=== PATIENT | male | born 1935 | race Caucasian/White ===

== ENCOUNTER 2017-12-06 04:44 | Observation (INO) | payer OTHER ==
[~2017-12-06] VITALS: Ht 167.6 cm; Wt 86.3 kg
[2017-12-06] MEDS ORDERED: ONDANSETRON HCL INJ 2 MG/ML VIAL IV STA (05:22)
[2017-12-06] MEDS ORDERED: FENTANYL CITRATE/PF 100MCG/2 ML INJ IV ONE (05:30)
[2017-12-06] MEDS: SODIUM CHLORIDE 0.9% 1000ML 1,000 ML IV SCH ×2 (05:42→13:45)
--- NOTE | 2017-12-06 06:25 | Diagnostic Imaging Report ---
EXAM: CT ABDOMEN AND PELVIS WITHOUT IV CONTRAST INDICATION: Lower abdominal pain for 4 days, history of prostate cancer with metastasis COMPARISON: None TECHNIQUE: The abdomen and pelvis were scanned using a multidetector helical scanner. Coronal and sagittal reformations were obtained. Dose modulation, iterative reconstruction, and/or weight based adjustment of the mA/kV was utilized to reduce the radiation dose to as low as reasonably achievable. Routine protocol performed. IV Contrast: None Oral Contrast: None CTDIvol has been reviewed. It is below the limits set by the Radiation Protocol Committee (RPC). FINDINGS: LOWER THORAX: Right lung base peripheral reticulation. No consolidations. LIVER: No masses BILIARY: Normal gallbladder. No ductal dilation. SPLEEN: No masses PANCREAS: No masses ADRENALS: No nodules KIDNEYS: No nephroureterolithiasis or hydronephrosis. GI TRACT: No wall thickening or obstruction. Colonic diverticulosis predominantly of the sigmoid colon without evidence of diverticulitis. Normal appendix. VESSELS: Advanced atherosclerotic changes of the abdominal aorta without aneurysm. PERITONEUM/RETROPERITONEUM: No free air or fluid LYMPH NODES: No lymphadenopathy REPRODUCTIVE ORGANS: Posttreatment/surgical changes of the prostate, which is small. BLADDER: Normal SOFT TISSUES: Normal BONES: Diffuse sclerotic metastasis to multiple ribs, vertebral bodies and the pelvis. No evidence of acute fracture. IMPRESSION: No acute findings to explain patient's lower abdominal pain. Diffuse sclerotic metastatic disease to the spine, ribs and pelvis. Signed by: Dr. Tess Dumont M.D. on 12/06/2017 6:20 AM
[2017-12-06] MEDS ORDERED: POTASSIUM CHLORIDE 10MEQ/100ML 100 ML IV ONE ×2 (06:30)
[2017-12-06] MEDS ORDERED: POTASSIUM CHLORIDE 20 MEQ TAB CR PO STA (06:36)
[2017-12-06] MEDS ORDERED: D5.45%NS/KCL 20MEQ 1,000 ML IV SCH (07:44)
[2017-12-06] MEDS ORDERED: MORPHINE SULFATE 2 MG/ML SYR IV PRN (08:59)
[2017-12-06] MEDS ORDERED: OMEGA 3 1,0001 EACH PO (09:42)
[2017-12-06] MEDS ORDERED: ZYTIGA250 MG PO (09:42)
[2017-12-06] MEDS ORDERED: CRESTOR20 MG PO (09:42)
[2017-12-06] MEDS ORDERED: NORCO 5-325 TA1 EACH PO (09:42)
[2017-12-06] MEDS ORDERED: FEXOFENADINE H180 MG PO (09:42)
[2017-12-06] MEDS ORDERED: GABAPENTIN300 MG PO (09:42)
[2017-12-06] MEDS ORDERED: PLAVIX75 MG PO (09:42)
[2017-12-06] MEDS ORDERED: PANTOPRAZOLE SO20 MG PO (09:42)
[2017-12-06] MEDS ORDERED: VITAMIN B-121000 MCG PO (09:42)
[2017-12-06] MEDS ORDERED: METOPROLOL SUCC25 MG PO (09:42)
[2017-12-06] MEDS ORDERED: ISOSORBIDE MONO30 MG PO (09:42)
[2017-12-06] MEDS ORDERED: PRESERVISION T1 EACH PO (09:42)
[2017-12-06] MEDS ORDERED: CALCIUM 500 +1 EAC2 PO (09:42)
[2017-12-06] MEDS ORDERED: AMLODIPINE BESY10 MG PO (09:42)
[2017-12-06 09:49] VITALS: BP 115/67
[2017-12-06 10:50] VITALS: BP 115/67
[2017-12-06 11:45] VITALS: BP 114/76
[2017-12-06] MEDS ORDERED: METRONIDAZOLE 500MG/NS 100ML IV SCH (12:00)
[2017-12-06] MEDS ORDERED: METRONIDAZOLE 500MG/NS 100ML 100 ML IV SCH (12:00)
[2017-12-06] MEDS ORDERED: POTASSIUM CHLORIDE 20 MEQ TAB CR PO ONE (12:30)
[2017-12-06] MEDS ORDERED: HYDROCODONE/APAP 5MG-325MG TAB PO PRN (12:45)
[2017-12-06] MEDS ORDERED: VANCOMYCIN 250MG/5ML ORAL SOLN PO SCH (13:00)
[2017-12-06] MEDS ORDERED: MORPHINE SULFATE INJ 4 MG/ML INJ IV PRN (13:00)
[2017-12-06] MEDS ORDERED: METOPROLOL TART25 MG PO (14:03)
[2017-12-06 16:19] VITALS: BP 115/61
[2017-12-06] MEDS: ENOXAPARIN SOD INJ 40 MG/0.4 ML SYR SC SCH (17:08)
[2017-12-06] MEDS: ONDANSETRON HCL INJ 2 MG/ML VIAL IV PRN ×2 (17:08→22:12)
[2017-12-06 20:00] VITALS: BP 143/89
[2017-12-06] MEDS: METRONIDAZOLE 500MG/NS 100ML 100 ML IV SCH (20:11)
[2017-12-06] MEDS: ROSUVASTATIN 20 MG PO SCH (20:11)
[2017-12-06] MEDS ORDERED: ATORVASTATIN 40 MG TAB PO SCH (21:00)
[2017-12-07] VITALS (7 sets, daily range): BP systolic 104–138; BP diastolic 55–87
[2017-12-07] MEDS: SODIUM CHLORIDE 0.9% 1000ML 1,000 ML IV SCH (01:21)
[2017-12-07] MEDS: METRONIDAZOLE 500MG/NS 100ML 100 ML IV SCH ×3 (04:23→20:54)
[2017-12-07 04:45] LABS: BASOPHILS # (AUTO) 0.1 (0.0-0.1); BASOPHILS % 0.7 % (0.0-1.0); EOSINOPHILS # (AUTO) 0.3 (0.0-0.4); EOSINOPHILS % 3.4 % (0.0-6.0); HEMATOCRIT 38.2 % (38.2-49.6); HEMOGLOBIN 12.5 g/dL (14.0-18.0); LYMPHOCYTES # (AUTO) 1.9 (1.0-3.2); LYMPHOCYTES % 22.6 % (18.0-39.1); MEAN CORPUSCULAR HEMOGLOBIN 32.6 pg (28-32); MEAN CORPUSCULAR HGB CONC 32.7 g/dL (31-35); MEAN CORPUSCULAR VOLUME 99.7 fL (81-99); MONOCYTES # (AUTO) 0.8 (0.2-0.8); MONOCYTES % 9.1 % (4.4-11.3); NEUTROPHILS # (AUTO) 5.3 (2.1-6.9); NEUTROPHILS % 63.1 % (38.7-80.0); PLATELET COUNT 250 x10e3/uL (140-360); RED BLOOD COUNT 3.83 x10e6/uL (4.3-5.7); RED CELL DISTRIBUTION WIDTH 14.7 % (11.7-14.4)
[2017-12-07 05:07] LABS: ANION GAP 15.8 mmol/L (8-16); BLOOD UREA NITROGEN < 5 mg/dL (7-26); CALCIUM 8.1 mg/dL (8.4-10.2); CARBON DIOXIDE 22 mmol/L (22-29); CHLORIDE 107 mmol/L (98-107); CREATININE, SERUM 0.74 mg/dL (0.72-1.25); EST GLOMERULAR FILTRATION RATE > 60 ML/MIN (60-); GLUCOSE 122 mg/dL (74-118); MAGNESIUM 1.5 MG/DL (1.3-2.1); SODIUM 142 mmol/L (136-145)
[2017-12-07 05:09] LABS: BUN/CREATININE RATIO 7 (6-25)
[2017-12-07 05:10] LABS: POTASSIUM 2.8 mmol/L (3.5-5.1)
[2017-12-07] MEDS: ONDANSETRON HCL INJ 2 MG/ML VIAL IV PRN (05:19)
[2017-12-07] MEDS ORDERED: POTASSIUM CHLORIDE 20 MEQ TAB CR PO STA (05:27)
[2017-12-07] MEDS: ALPRAZOLAM 0.25 MG TAB PO PRN ×2 (05:47→21:13)
[2017-12-07] MEDS ORDERED: ZOLPIDEM TARTRATE 5 MG TAB PO PRN (10:45)
[2017-12-07] MEDS ORDERED: LOPERAMIDE HCL 2 MG CAP PO ONE (11:30)
[2017-12-07] MEDS ORDERED: MAGNESIUM SULFATE 2GM/50ML 50 ML IV ONE (11:30)
[2017-12-07] MEDS: LACTOBACILLUS ACIDOPHILUS CAPSULE PO SCH ×2 (11:43→17:17)
[2017-12-07] MEDS: LOPERAMIDE HCL 2 MG CAP PO PRN (14:31)
[2017-12-07] MEDS: ENOXAPARIN SOD INJ 40 MG/0.4 ML SYR SC SCH (17:17)
[2017-12-07] MEDS: METOPROLOL TARTRATE 25 MG TAB PO SCH (17:18)
[2017-12-07] MEDS ORDERED: POTASSIUM CHLORIDE 20 MEQ TAB CR PO ONE (17:30)
[2017-12-07] MEDS: ROSUVASTATIN 20 MG PO SCH (21:00)
[2017-12-08] VITALS: BP 160/79
[2017-12-08 00:15] VITALS: BP 104/66
[2017-12-08 04:00] VITALS: BP 151/74
[2017-12-08] MEDS: METRONIDAZOLE 500MG/NS 100ML 100 ML IV SCH (04:31)
[2017-12-08 05:03] LABS: BASOPHILS # (AUTO) 0.1 (0.0-0.1); BASOPHILS % 0.8 % (0.0-1.0); EOSINOPHILS # (AUTO) 0.3 (0.0-0.4); EOSINOPHILS % 3.9 % (0.0-6.0); HEMATOCRIT 38.1 % (38.2-49.6); HEMOGLOBIN 12.1 g/dL (14.0-18.0); LYMPHOCYTES # (AUTO) 1.8 (1.0-3.2); LYMPHOCYTES % 27.7 % (18.0-39.1); MEAN CORPUSCULAR HEMOGLOBIN 32.6 pg (28-32); MEAN CORPUSCULAR HGB CONC 31.8 g/dL (31-35); MEAN CORPUSCULAR VOLUME 102.7 fL (81-99); MONOCYTES # (AUTO) 0.6 (0.2-0.8); MONOCYTES % 9.6 % (4.4-11.3); NEUTROPHILS # (AUTO) 3.7 (2.1-6.9); NEUTROPHILS % 56.6 % (38.7-80.0); PLATELET COUNT 250 x10e3/uL (140-360); RED BLOOD COUNT 3.71 x10e6/uL (4.3-5.7)
[2017-12-08 05:22] LABS: ANION GAP 15.2 mmol/L (8-16); BLOOD UREA NITROGEN < 5 mg/dL (7-26); BUN/CREATININE RATIO 7 (6-25); CALCIUM 7.9 mg/dL (8.4-10.2); CARBON DIOXIDE 20 mmol/L (22-29); CHLORIDE 111 mmol/L (98-107); CREATININE, SERUM 0.74 mg/dL (0.72-1.25); EST GLOMERULAR FILTRATION RATE > 60 ML/MIN (60-); GLUCOSE 105 mg/dL (74-118); POTASSIUM 3.2 mmol/L (3.5-5.1); SODIUM 143 mmol/L (136-145)
[2017-12-08] MEDS: LACTOBACILLUS ACIDOPHILUS CAPSULE PO SCH (08:57)
[2017-12-08] MEDS: METOPROLOL TARTRATE 25 MG TAB PO SCH (08:57)
[2017-12-08] MEDS ORDERED: CLOPIDOGREL BISULFATE 75 MG TAB PO SCH (09:00)
[2017-12-08] MEDS ORDERED: ABIRATERONE ACETATE PO SCH (09:00)
[2017-12-08 09:12] VITALS: BP 132/67
[2017-12-08] MEDS ORDERED: POTASSIUM CHLORIDE 20 MEQ TAB CR PO NR (09:45)
[2017-12-08] MEDS: LOPERAMIDE HCL 2 MG CAP PO PRN ×2 (10:40→12:20)
[2017-12-08 12:00] VITALS: BP 113/62
--- NOTE | 2017-12-08 14:13 | Diagnostic Imaging Report ---
EXAM: Complete Abdominal Ultrasound INDICATION: Abdominal pain \S\abdominal pain COMPARISON: CT abdomen and pelvis without contrast 12/06/2017 TECHNIQUE: Transverse and longitudinal images of the upper abdomen were obtained. FINDINGS: Liver: Size: 12.8 cm in the right midclavicular line, normal Appearance: Mild increased echogenicity, smooth contour Mass: No focal masses Spleen: Size: 10.3 cm in length, normal Echogenicity: Normal Mass: No focal masses Gallbladder: Stones/Sludge: Small amount of sludge noted in the gallbladder lumen. No echogenic stones. Wall: 0.2 cm Appearance: No wall thickening, pericholecystic fluid or hydrops. Sonographic Hernandez's Sign: Negative Bile Ducts: Intrahepatic Ducts: No dilatation Extrahepatic Ducts: Common bile duct measures 0.4 cm, no dilatation Pancreas: Visualized portions of the neck and proximal body are unremarkable. Kidneys: Length: Right 10.7 cm Left 9.9 cm Echogenicity: Normal Collecting System: No hydronephrosis Stone: None Cyst/Mass: 1.3 x 1.0 x 1.2 cm cystic, anechoic lesion in the left superior pole. Vessels: Aorta: Obscured by overlying bowel gas Inferior Vena Cava: Visualized portions are normal Main Portal Vein: 0.9 cm, normal size with hepatopetal flow. Free Fluid: No ascites or pleural effusion IMPRESSION: 1. Small amount of sludge in the gallbladder lumen. No echogenic stones. No sonographic evidence of cholecystitis. 2. Mild increased echogenicity of the hepatic parenchyma, likely reflecting mild fatty infiltration. Signed by: Dr. Yahir Contreras M.D. on 12/08/2017 2:10 PM
--- NOTE | 2017-12-08 15:31 | Diagnostic Imaging Report ---
PROCEDURE: X-RAY MODIFIED BARIUM SWALLOW COMPARISON: None. INDICATION: Difficulty swallowing DISCUSSION: Fluoroscopic examination was performed in conjunction with speech pathology during swallowing a variety of thin and thick liquid consistencies. CONCLUSION: Penetration to the level of the vocal cords is demonstrated on one of the swallow sequences. No significant aspiration is demonstrated on provided images. Please refer to the speech pathology report for further details. Signed by: Dr. Isaac Carter MD on 12/08/2017 3:28 PM
== END 2017-12-08 15:26 | disposition home or self-care (01) ==
LOC: FSED 04:44 → ERHOLD 07:52 → INTOOBSV 07:52 → MED/SURG2 09:24
PROVIDERS: ADMIT Internal Medicine; ATTEND Internal Medicine
DX: K52.1 Toxic gastroenteritis and colitis (principal); E87.6 Hypokalemia; T36.8X5A Adverse effect of other systemic antibiotics, initial encounter; E86.0 Dehydration; R13.10 Dysphagia, unspecified; C61 Malignant neoplasm of prostate; Z87.891 Personal history of nicotine dependence; I10 Essential (primary) hypertension; Z82.49 Family history of ischemic heart disease and other diseases of the circulatory system; E83.42 Hypomagnesemia; I25.10 Atherosclerotic heart disease of native coronary artery without angina pectoris; G47.00 Insomnia, unspecified; Z88.6 Allergy status to analgesic agent; Z88.1 Allergy status to other antibiotic agents; Z88.5 Allergy status to narcotic agent; Z88.0 Allergy status to penicillin; Z88.8 Allergy status to other drugs, medicaments and biological substances
CPT/HCPCS: 36415 ×3; 74176; 74230; 76700; 80048 ×3; 80076; 81003; 82270; 83735 ×3; 84132; 85025 ×3; 85610; 87045; 87493; 92526 ×2; 92610; 92611; 93005; 96361; 97161; 99284; G0378 ×3; J1650 ×2; J2405 ×2; J3480; J7030 ×2; 96360

== ENCOUNTER 2018-05-13 22:24 | Emergency (ER) | payer MEDICARE, OTHER ==
[~2018-05-13] VITALS: Ht 167.6 cm; Wt 88.6 kg
[~2018-05-13 22:24] MED LIST: AMLODIPINE BESY10 MG PO; CALCIUM 500 +1 EAC2 PO; CRESTOR20 MG PO; FEXOFENADINE H180 MG PO; GABAPENTIN300 MG PO; ISOSORBIDE MONO30 MG PO; METOPROLOL SUCC25 MG PO; METOPROLOL TART25 MG PO; NORCO 5-325 TA1 EACH PO; OMEGA 3 1,0001 EACH PO; PANTOPRAZOLE SO20 MG PO; PLAVIX75 MG PO; PRESERVISION T1 EACH PO; VITAMIN B-121000 MCG PO; ZYTIGA250 MG PO
--- OUTSIDE RECORDS SUMMARY | 2018-05-13 22:27 | XMS REPORT | Clinical Summary ---
Author Author [facility] Organization [facility] Address Unknown Phone Unavailable Care Team Providers Care Machine Feeder Raw Stock Name Role Phone Jaylyn Valdez MD PCP Unavailable Allergies Comments Active Allergy Reactions Severity Noted Date Gaudencio Inhibitors Swelling 11/07/2014 Naproxen Sodium Swelling 11/07/2014 Tongue swells ups Aspirin, Buffered Swelling 11/07/2014 Olmesartan Swelling 11/07/2014 Propoxyphene Swelling 11/07/2014 N-Acetaminophen Ibuprofen Swelling 11/07/2014 Iodinated Contrast- Oral Swelling 11/07/2014 And Iv Dye Atorvastatin Swelling 11/07/2014 Tongue swell Penicillins Swelling 11/07/2014 Hydrocodone-Acetaminophen Swelling 11/07/2014 Medications End Date Status Medication Sig Dispensed Refills Start Date Active hydrochlorothiazide Take 25 mg by 0 (HYDRODIURIL) 25 MG mouth daily. tablet Active simvastatin (ZOCOR) 20 MG Take 20 mg by 0 tablet mouth nightly. Active predniSONE (DELTASONE) 20 Take 5 mg by 0 MG tablet mouth 2 (two) times daily . Active pantoprazole (PROTONIX) Take 20 mg by 0 20 MG tablet mouth daily. Active amLODIPine (NORVASC) 10 Take 10 mg by 0 MG tablet mouth daily. Active fexofenadine (SAMANTHA) Take 180 mg 0 180 MG tablet by mouth daily. Active ABIRATERONE ACETATE Take 750 mg 0 (ZYTIGA ORAL) by mouth daily . Active calcium-vitamin Take 1 tablet 0 D3-vitamin K 500 mg-1,000 by mouth unit-40 mcg Chew daily. Active leuprolide, 6 month, Inject 45 mg 0 (LUPRON) 45 mg injection subcutaneousl y every 6 (six) months. Active potassium 99 mg Tab Take 1 tablet 0 by mouth daily. Active VIT Take 1 tablet 0 C/E/ZN/COPPR/LUTEIN/ZEAXA by mouth N (PRESERVISION AREDS 2 daily. ORAL) Active clopidogrel (PLAVIX) 75 Take 1 tablet 0 mg tablet (75 mg total) 7 by mouth daily Resume Plavix once ok with . 11/19/2017 metoprolol (LOPRESSOR) 25 Take 1 tablet 60 tablet 1 MG tablet (25 mg total) 7 by mouth 2 (two) times daily. 11/14/2017 acetaminophen (TYLENOL) Take 2 30 tablet 0 325 MG tablet tablets (650 7 mg total) by mouth every 4 (four) hours as needed for up to 360 days. Active Problems Problem Noted Date Herniated nucleus pulposus, L1-2 11/19/2016 Prostate cancer metastatic to bone 11/15/2016 CAD (coronary artery disease) 11/07/2014 Social History Date Tobacco Use Types Packs/Day Years Used Former Smoker Comments: Quit in 1980 Alcohol Use Drinks/Week oz/Week Comments Yes 7 Glasses of 4.2 wine Sex Assigned at Date Recorded Not on file Industry Job Start Date Occupation Not on file Not on file Not on file Travel End Travel History Travel Start No recent travel history available. Last Filed Vital Signs Not on file Plan of Treatment Not on file Implants Device Identifier Shelf Expiration Date Model / Serial / Lot Implanted Type Area Manufactur er 04/08/2018 [id number] / / [id number] Matrix Floseal Hemo W/O Ndl 10 Cement/Krzysztof N/A: Spine EARL:BIO [id number] - [id number] ler/Adhesi Lumbar SCI Implanted: Qty: 1 on 11/17/2016 by Leo aBlbuena MD Results Not on fileafter 05/12/2017 Insurance Payer Benefit Subscriber ID Type Phone Address Plan / Group [employer] TEX[employer] xxxxxxxxx Maps HMO ALL Contracted Advance Directives Patient has advance care planning documents, and code status on file. For more i nformation, please contact: [address] [address] Date Inactivated Comments Code Status Date Activated 11/19/2016 9:22 PM Full Code 11/15/2016 11:38 AM This code status was determined by: Patient 11/08/2014 12:57 AM Full Code 11/07/2014 6:13 PM This code status was determined by: Patient
[2018-05-13] MEDS ORDERED: POTASSIUM CHLORIDE 20 MEQ TAB CR PO STA (23:37)
[2018-05-13] MEDS ORDERED: ADENOSINE 6 MG/2 ML VIAL IV STA ×2 (23:37)
[2018-05-13] MEDS ORDERED: METOPROLOL TARTRATE INJ 1 MG/ML VIAL IV STA (23:37)
[2018-05-13] MEDS ORDERED: METOPROLOL TARTRATE 50 MG TAB PO STA (23:37)
[2018-05-13] MEDS ORDERED: CLOPIDOGREL BISULFATE 75 MG TAB PO STA (23:37)
--- NOTE | 2018-05-13 23:51 | NUR ---
Acceptance by Dr. Chelo Vila at [facility] By Debbie Terry, second vp hr assessmentArchitect Internship MOT and Face Sheet to [phone]
--- NOTE | 2018-05-13 23:51 | Diagnostic Imaging Report ---
EXAMINATION: CXR 2 VIEW - HOPD INDICATION: Tachycardia history of metastatic prostate cancer. ^[id number] ^[id number] COMPARISON: CT abdomen/pelvis 12/06/2017 FINDINGS: PA and lateral views TUBES and LINES: None. LUNGS: Diffuse hyperinflation suggestive of COPD. Wispy bands of interstitial thickening in the lateral right lung are suggestive of reticulation. No soft tissue mass or consolidation. PLEURA: Right lateral and apical pleural thickening. No pleural effusion or pneumothorax. Mild eventration of the right diaphragm is stable. HEART AND MEDIASTINUM: The heart is normal in size. There is a suspected calcified lymph nodes or calcifications of the aortic arch. BONES AND SOFT TISSUES: Widespread osseous metastases. No compression deformities or destructive lesions. Soft tissues are unremarkable. UPPER ABDOMEN: No free air under the diaphragm. IMPRESSION: Prominent right pulmonary interstitium and lateral and apical pleural thickening is suggestive of a chronic process. No acute cardiopulmonary process. Diffuse osseous metastases. Signed by: Dr. Nerissa Moran MD on 05/13/2018 11:47 PM
--- NOTE | 2018-05-14 01:50 | NUR ---
report to DAYAN Hoover at [facility] [phone]
[2018-05-14 03:37] VITALS: BP 138/80
== END 2018-05-14 01:30 | disposition other institution (70) ==
LOC: FSED 22:24
DX: R07.89 Other chest pain (principal); I47.1 Supraventricular tachycardia; R06.02 Shortness of breath; R73.9 Hyperglycemia, unspecified; I10 Essential (primary) hypertension; I25.10 Atherosclerotic heart disease of native coronary artery without angina pectoris; E78.5 Hyperlipidemia, unspecified; Z85.46 Personal history of malignant neoplasm of prostate
CPT/HCPCS: 71046; 80053; 81003; 82553; 83880; 84484; 85025; 85610; 93005 ×2; 96374; 96376; 99284; J0153